=== PATIENT | female | born 1950 | race Caucasian/White ===

== ENCOUNTER 2022-11-23 04:34 | Day surgery (SDC) | payer OTHER, BC ==
[2022-11-21 14:29] VITALS: BMI 22.6
[2022-11-23 09:15] VITALS: TEMP 97.6
[2022-11-23 10:09] VITALS: BP 137/65; PULSE 60; RESP 16
== END 2022-11-23 11:15 | disposition home or self-care (01) ==
LOC: JASU-ENDO 04:34
PROVIDERS: ATTEND Internal Medicine Gastroenterology
PROC: 0DB98ZX Excision of Duodenum, Via Natural or Artificial Opening Endoscopic, Diagnostic (ICD-10-PCS; 2022-11-23)
PROC: 0DB78ZX Excision of Stomach, Pylorus, Via Natural or Artificial Opening Endoscopic, Diagnostic (ICD-10-PCS; 2022-11-23)
PROC: 0DB28ZX Excision of Middle Esophagus, Via Natural or Artificial Opening Endoscopic, Diagnostic (ICD-10-PCS; 2022-11-23)
PROC: 0DB38ZX Excision of Lower Esophagus, Via Natural or Artificial Opening Endoscopic, Diagnostic (ICD-10-PCS; 2022-11-23)
PROC: 0DJD8ZZ Inspection of Lower Intestinal Tract, Via Natural or Artificial Opening Endoscopic (ICD-10-PCS; principal; 2022-11-23 09:00)
DX: Z12.11 Encounter for screening for malignant neoplasm of colon (principal); K57.30 Diverticulosis of large intestine without perforation or abscess without bleeding; K64.8 Other hemorrhoids; K21.00 Gastro-esophageal reflux disease with esophagitis, without bleeding; K29.70 Gastritis, unspecified, without bleeding; B96.81 Helicobacter pylori [H. pylori] as the cause of diseases classified elsewhere; K29.80 Duodenitis without bleeding; Z86.010 Personal history of colon polyps; I10 Essential (primary) hypertension; Z80.0 Family history of malignant neoplasm of digestive organs
CPT/HCPCS: 43239; G0105; 88305-TC; 88342-TC

== ENCOUNTER 2024-04-23 13:11 | Emergency (ER) | payer OTHER, BC ==
[2024-04-23 14:14] VITALS: BP 123/76; PULSE 65; RESP 18; TEMP 97.3; BMI 23.6
[2024-04-23] MEDS ORDERED: DIPHTH,PERTUSS(ACELL),TET 0.5 ML DISP.SYRIN IM ONE (16:08)
[2024-04-23] MEDS: DIPHTH,PERTUSS(ACELL),TET 0.5 ML DISP.SYRIN IM ONE (16:11)
== END 2024-04-23 17:25 | disposition home or self-care (01) ==
LOC: FER 13:11
PROC: 3E0234Z Introduction of Serum, Toxoid and Vaccine into Muscle, Percutaneous Approach (ICD-10-PCS; principal; 2024-04-23)
DX: S62.356A Nondisplaced fracture of shaft of fifth metacarpal bone, right hand, initial encounter for closed fracture (principal); S82.65XA Nondisplaced fracture of lateral malleolus of left fibula, initial encounter for closed fracture; S00.83XA Contusion of other part of head, initial encounter; W01.198A Fall on same level from slipping, tripping and stumbling with subsequent striking against other object, initial encounter; X50.1XXA Overexertion from prolonged static or awkward postures, initial encounter; Z23 Encounter for immunization
CPT/HCPCS: 70450-TC; 73110-TC-RT-FY; 73610-TC-LT-FY; 81003; 81015; 87086; 90471; 90715; 99284-25